=== PATIENT | female | born 1965 | race African-American/Black ===

== ENCOUNTER 2016-09-30 07:18 | Emergency (ER) | payer OTHER ==
[~2016-09-30] VITALS: Ht 154.9 cm; Wt 95.3 kg
[2016-09-30] MEDS ORDERED: CILOXAN5 ML OPH (07:32)
--- NOTE | 2016-09-30 07:32 | ED EYE COMPLAINT ---
History of Present Illness General Chief Complaint: Eye Problems Stated Complaint: RED ITCHY EYES Source: patient, family Exam Limitations: no limitations Vital Signs & Intake/Output Vital Signs & Intake/Output Vital Signs Date Time Temp Pulse Resp B/P Pulse O2 O2 Flow FiO2 Ox Delivery Rate 09/30 0723 96.5 93 20 170/120 97 Room Air Room Air Allergies Coded Allergies: erythromycin base (Intermediate, "I ITCH AND BREAK OUT IN HIVES 09/30/16) Reconcile Medications Ciprofloxacin (Ciloxan) 0.3 % DROPS 1 GTT OPH TID PINK EYE Triage Note: TRIAGE: 51 Y/O FEMALE PRESENTS C/O 02/17 BILATERAL EYE PAIN, BURNING, "GRITTY SENSATION". REDNESS NOTED BILATERALLY. PT REPORTS VISION UNAFFECTED. Triage Nurses Notes Reviewed? yes HPI: Patient is from [place] here visiting her daughter. Patient states that she has had URI type symptoms for the past week. She states that on Sunday her right eye became itchy and red and has clear drainage. Patient states that yesterday morning her right eye cleared up however her left eye has now started. Patient denies any pain but states that there is a granular feeling when she blinks her eye. She has clear watery discharge. Her eye feels very itchy. Patient denies any fevers or chills. There is no pain. There is no blurry vision. There is no headache. Past History Travel History Traveled to [place] past 21 day No Medical History Any Pertinent Medical History? see below for history Neurological: NONE EENT: NONE Cardiovascular: NONE Respiratory: NONE Gastrointestinal: NONE Hepatic: NONE Renal: NONE Musculoskeletal: NONE Psychiatric: NONE Endocrine: NONE Blood Disorders: NONE Cancer(s): breast cancer Surgical History Surgical History: non-contributory Psychosocial History What is your primary language Khmer Tobacco Use: Never used ETOH Use: occasional use Illicit Drug Use: denies illicit drug use Family History Hx Contributory? No Review of Systems Review of Systems Constitutional: Reports: no symptoms. Eyes: Reports: see HPI, drainage. Ear: Reports: no symptoms. Nose: Reports: no symptoms. Mouth: Reports: no symptoms. Respiratory: Reports: no symptoms. Musculoskeletal: Reports: no symptoms. Neurological/Psychological: Reports: no symptoms. Physical Exam General Appearance: well developed/nourished, alert, awake General Inspection: normal inspection Eyelid: normal inspection, everted for exam Conjunctiva/Sclera: injected Cornea: normal inspection EOM: intact Pupil: normal accommodation, normal pupil, PERRL General Inspection: normal inspection Eyelid: normal inspection Conjunctiva/Sclera: normal inspection Cornea: normal inspection EOM: intact Pupil: normal accommodation, normal pupil, PERRL Anterior Chamber: normal inspection Physical Exam Ears: Bilateral: canal normal, Tympanic normal. Mouth/Throat: normal mouth inspection, pharynx normal Cardiovascular/Respiratory: normal breath sounds, normal peripheral pulses, regular rate/rhythm, no respiratory distress Neurologic/Psych: no motor/sensory deficits, awake, alert, oriented x 3, normal gait, normal mood/affect Progress Differential Diagnosis: conjunctivitis Plan of Care: CILOXAN Departure Departure Disposition: HOME OR SELF CARE Condition: Stable Clinical Impression Primary Impression: Conjunctivitis, left eye Referrals: BRIAN LOVELL,SHANIKA Villasenor Additional Instructions: USE A COOL WASHCLOTH RETURN IF SYMPTOMS WORSEN OR FOR ANY CONCERNS Departure Forms: Customer Survey General Discharge Information Prescriptions: Current Visit Scripts Ciprofloxacin (Ciloxan) 1 GTT OPH TID #5 ML
== END 2016-09-30 07:58 ==
LOC: ERH 07:18
DX: H10.9 Unspecified conjunctivitis (principal)